=== PATIENT | male | born 1995 | race Two or more races ===

== ENCOUNTER 2017-02-01 23:54 | Emergency (ER) | payer SELFPAY ==
[~2017-02-01] VITALS: Ht 167.6 cm; Wt 63.8 kg
[2017-02-02 01:05] LABS: BLOOD UREA NITROGEN 18 mg/dL (7-18)
[2017-02-02 01:42] VITALS: BP 111/67
== END 2017-02-02 01:45 | disposition home or self-care (01) ==
LOC: ED 23:59
DX: R53.1 Weakness (principal); R20.2 Paresthesia of skin; F12.129 Cannabis abuse with intoxication, unspecified
CPT/HCPCS: 36415; 80048; 82040; 85025; 93005

== ENCOUNTER 2017-07-18 20:33 | Emergency (ER) | payer OTHER ==
[~2017-07-18] VITALS: Ht 167.6 cm; Wt 60.8 kg
[2017-07-18 20:49] VITALS: BP 124/81
== END 2017-07-18 21:23 | disposition home or self-care (01) ==
LOC: ED 21:00
DX: K02.9 Dental caries, unspecified (principal); K08.89 Other specified disorders of teeth and supporting structures
CPT/HCPCS: 99283